=== PATIENT | female | born 1935 | race Two or more races ===

== ENCOUNTER 2020-08-03 14:24 | Emergency (ER) | payer SELFPAY ==
[~2020-08-03] VITALS: Ht 149.9 cm; Wt 62.6 kg
--- NOTE | 2020-08-03 14:36 | NUR ---
pt bib family ambulatory to er bed 01 c/o R wrist pian s/p glf at at around 1130 today. r wrist w/ noted deformity. denies head trauma. stable vitals. awaiting md oshea.
--- NOTE | 2020-08-03 14:47 | NUR ---
dr azul at bedside for eval.
--- NOTE | 2020-08-03 17:35 | NUR ---
CALLED OFFICE OF DR Mauri GRAHAM, SPEAKING WITH DR LOU
--- NOTE | 2020-08-03 18:10 | NUR ---
pt splinted. Patient discharged to home in stable condition. Written and verbal after care instructions given. Patient verbalizes understanding of instruction.
[2020-08-03 18:12] VITALS: BP 152/80
== END 2020-08-03 18:12 | disposition home or self-care (01) ==
LOC: ER 14:30
DX: S52.591A Other fractures of lower end of right radius, initial encounter for closed fracture (principal); S52.291A Other fracture of shaft of right ulna, initial encounter for closed fracture; I10 Essential (primary) hypertension; E11.9 Type 2 diabetes mellitus without complications; Z90.49 Acquired absence of other specified parts of digestive tract; Z98.890 Other specified postprocedural states; W01.0XXA Fall on same level from slipping, tripping and stumbling without subsequent striking against object, initial encounter; Y93.89 Activity, other specified; Y92.89 Other specified places as the place of occurrence of the external cause; Y99.8 Other external cause status
CPT/HCPCS: 73110